=== PATIENT | female | born 1990 | race Caucasian/White ===

== ENCOUNTER → 2020-05-10 | Outpatient (CLI) | payer BC ==
[2020-05-10 14:32] LABS: GLUCOSE,CSF 56 mg/dL (50-80); TOTAL PROTEIN,CSF 56 mg/dL (20-45)
[2020-05-10 14:43] LABS: RBC (AUTOMATED) 100 10^6 (0); WBC (AUTOMATED 2 10^3 (0-5)
[2020-05-10 14:44] LABS: WBC (AUTOMATED 1 10^3 (0-5)
== END ==
LOC: MRI 10:00
PROVIDERS: Ophthalmology
PROC: 009U3ZX Drainage of Spinal Canal, Percutaneous Approach, Diagnostic (ICD-10-PCS; principal; 2020-05-10)
DX: H47.10 Unspecified papilledema (principal); H54.7 Unspecified visual loss
CPT/HCPCS: 70540; 70544; 70551; 82945; 84157; 87015; 87070; 87116; 87205; 87210; 87252; 89051